=== PATIENT | male | born 1985 | race Caucasian/White ===

== ENCOUNTER 2017-09-09 22:47 | Emergency (ER) | payer SELFPAY ==
[~2017-09-09] VITALS: Ht 185.4 cm; Wt 101.5 kg
[2017-09-10 00:39] VITALS: BP 168/105
== END 2017-09-10 00:44 | disposition home or self-care (01) ==
LOC: EME 22:47
PROC: 0HQCXZZ Repair Left Upper Arm Skin, External Approach (ICD-10-PCS; principal; 2017-09-10)
DX: S41.112A Laceration without foreign body of left upper arm, initial encounter (principal); W26.9XXA Contact with unspecified sharp object(s), initial encounter; Y99.0 Civilian activity done for income or pay; F17.200 Nicotine dependence, unspecified, uncomplicated; Z88.8 Allergy status to other drugs, medicaments and biological substances
CPT/HCPCS: 99281; 99284

== ENCOUNTER 2017-11-22 04:06 | Emergency (ER) | payer OTHER ==
[~2017-11-22] VITALS: Ht 185.4 cm; Wt 99.7 kg
[2017-11-22 04:08] VITALS: BP 146/95
[2017-11-22] MEDS ORDERED: TOBREX5 ML RIGHT EYE (04:48)
== END 2017-11-22 04:57 | disposition home or self-care (01) ==
LOC: EME 04:06
DX: T15.01XA Foreign body in cornea, right eye, initial encounter (principal); Y93.89 Activity, other specified; Y92.008 Other place in unspecified non-institutional (private) residence as the place of occurrence of the external cause; Y99.0 Civilian activity done for income or pay; F17.200 Nicotine dependence, unspecified, uncomplicated
CPT/HCPCS: 99281; 99283